=== PATIENT | female | born 1980 | race Asian ===

== ENCOUNTER 2016-06-21 21:51 | Emergency (ER) | payer OTHER, MEDICAID ==
[~2016-06-21] VITALS: Ht 162.6 cm; Wt 63.5 kg
[2016-06-21 22:00] VITALS: BP_SYST 126
--- NOTE | 2016-06-21 22:00 | NUR ---
Patient triaged and placed in waiting room. VSS and patient appears in no acute distress at this time. Accompanied by self, awaiting available bed, and MD notified of need for MSE.
--- NOTE | 2016-06-21 22:15 | NUR ---
ER Dr. KLINE at bedside examining patient.
--- NOTE | 2016-06-21 22:15 | NUR ---
PT STATES SHE HAS UPPER ABDOMINAL PAIN 09/09 SINCE FRIDAY, NO N/V/D. NO COLE. SAFETY PRECAUTIONS IN PLACE, WILL CONTINUE TO MONITOR.
[2016-06-21 22:43] LABS: BASOPHILS % (AUTO) 0.3 % (0.0-2.0); EOSINOPHILS # (AUTO) 0.1 K/uL (0.0-0.4); MEAN CORPUSCULAR HEMOGLOBIN 24 pg (27-31); MONOCYTES # (AUTO) 0.4 K/uL (0.0-1.0)
[2016-06-21 22:45] LABS: EOSINOPHILS % (AUTO) 0.7 % (0.0-4.0); HEMATOCRIT 31.3 % (36-48); LYMPHOCYTES % (AUTO) 45.6 % (20.5-51.5); MEAN CORPUSCULAR HGB CONC 32 % (32-36); MEAN CORPUSCULAR VOLUME 74 fL (79.0-98.0); MONOCYTES % (AUTO) 4.5 % (1.7-9.3); NEUTROPHILS # (AUTO) 4.2 K/uL (1.8-7.7); NEUTROPHILS % (AUTO) 48.9 % (40.0-70.0); PLATELET COUNT (AUTO) 365 K/uL (130-430); RED BLOOD CELL COUNT(AUTO) 4.21 MIL/uL (4.2-6.2); RED CELL DISTRIBUTION WIDTH 16.1 % (9.0-15.0); WHITE BLOOD COUNT (AUTO) 8.7 K/uL (4.8-10.8)
[2016-06-21 22:46] LABS: BILIRUBIN,URINE NEGATIVE (NEGATIVE); CLARITY/URINE CLEAR (CLEAR); GLUCOSE,URINE NEGATIVE (NEGATIVE); KETONES,URINE NEGATIVE (NEGATIVE); LEUKOCYTE ESTERASE ,URINE NEGATIVE (NEGATIVE); NITRITE, URINE NEGATIVE (NEGATIVE); PH,URINE 7.5 (5.0-8.0); PROTEIN URINE NEGATIVE (NEGATIVE); UROBILINOGEN,URINE 0.2 (0.2-1.0)
[2016-06-21 22:46] LABS: CALCIUM 8.4 mg/dL (8.4-11.0); CREATININE 0.94 mg/dL (0.55-1.30); POTASSIUM 3.9 mmol/L (3.5-5.1)
[2016-06-21 22:51] LABS: TOTAL BILIRUBIN 0.2 mg/dL (0.0-1.0)
[2016-06-21 22:57] LABS: BLOOD, URINE TRACE (NEGATIVE); COLOR,URINE STRAW (YELLOW)
[2016-06-21 22:58] LABS: BACTERIA,URINE FEW /HPF (None Seen); RBC,URINE NONE SEEN /HPF (0-3); WBC,URINE NONE SEEN /HPF (0-3)
[2016-06-21 22:59] LABS: MUCUS,URINE None Seen /LPF (None Seen)
[2016-06-21] MEDS ORDERED: MAG-AL HYDROX/SIMETH 30 ML UDC PO ONE (23:30)
[2016-06-21] MEDS ORDERED: LIDOCAINE VISCOUS 2%, 15 ML UDC MM ONE (23:30)
[2016-06-21] MEDS ORDERED: BELLADONNA ALKALOIDS/PHENOBARB 5 ML UDC PO ONE (23:30)
[2016-06-22] MEDS ORDERED: LIDOCAINE VISCOUS 2%, 15 ML UDC ONE (00:22)
[2016-06-22 01:15] VITALS: BP_SYST 126
--- NOTE | 2016-06-22 01:15 | NUR ---
Patient given written and verbal discharge instructions and verbalizes understanding. ER MD DR. KLINE discussed with patient the results and treatment provided. Given copies of tests performed in ER. Patient in stable condition. ID arm band removed. Rx of PRILOSEC given. Patient educated on pain management and to follow up with PMD. Pain Scale 1/10, PT AMBULATED W/ STEADY GAIT. Opportunity for questions provided and answered.
== END 2016-06-22 01:15 | disposition home or self-care (01) ==
LOC: SED 21:51
DX: K21.9 Gastro-esophageal reflux disease without esophagitis (principal)
CPT/HCPCS: 36415; 80053; 81000; 81025; 83690; 85025; 99284; J2001

== ENCOUNTER 2018-05-20 12:00 | Emergency (ER) | payer OTHER, MEDICAID ==
[~2018-05-20] VITALS: Ht 162.6 cm; Wt 68.0 kg
[2018-05-20 12:00] VITALS: BP_SYST 131
--- NOTE | 2018-05-20 12:00 | NUR ---
BROUGHT BACK TO BED #4 AND TRIAGED. REPORT GIVEN TO JOSELIN
--- NOTE | 2018-05-20 12:22 | NUR ---
patient arrived AOx4 from home with c/o right eyelip swelling since this morning. patient states she has never had this before. patient states she tried to ice her eye but hasn't looked at it since or touched it since. patient states she googled her eye problem has states she has cellulitius. patient denies any vision changes and denies discharge of any kind. no other complaint or injury at this time.
--- NOTE | 2018-05-20 12:23 | NUR ---
Patient to ER bed 04 for evaluation. Side rails up.
--- NOTE | 2018-05-20 12:23 | NUR ---
ER at bedside examining patient.
[2018-05-20 13:11] VITALS: BP_SYST 130
--- NOTE | 2018-05-20 13:11 | NUR ---
Patient given written and verbal discharge instructions and verbalizes understanding. ER MD discussed with patient the results and treatment provided. Patient in stable condition. ID arm band removed. IV catheter removed intact and dressing applied, no active bleeding. Rx of Keflex given. Doctor Roney informed patient to take Benadryl allergy OTC. Patient educated on pain management and to follow up with PMD. Pain Scale 0/10. Opportunity for questions provided and answered. Medication side effect fact sheet provided.
== END 2018-05-20 13:11 | disposition home or self-care (01) ==
LOC: SED 12:00
DX: T78.40XA Allergy, unspecified, initial encounter (principal); H02.841 Edema of right upper eyelid; F32.9 Major depressive disorder, single episode, unspecified; R03.0 Elevated blood-pressure reading, without diagnosis of hypertension; X58.XXXA Exposure to other specified factors, initial encounter
CPT/HCPCS: 81025; 99283

== ENCOUNTER 2018-09-12 23:49 | Emergency (ER) | payer OTHER, MEDICAID ==
[~2018-09-12] VITALS: Ht 162.6 cm; Wt 61.2 kg
[2018-09-13 00:08] VITALS: BP_SYST 105
--- NOTE | 2018-09-13 00:12 | NUR ---
Patient to ER bed 6 to gown for evaluation. Side rails up.
--- NOTE | 2018-09-13 00:30 | NUR ---
Patient came from home aaox4 with complaints or burning upon urination, no bleeding. States she went to [employer] and thats when the incident happen. Denies any pain, n/v, chills, or fever.
[2018-09-13 01:13] LABS: BILIRUBIN,URINE NEGATIVE (NEGATIVE); BLOOD, URINE 1+ (NEGATIVE); CLARITY/URINE CLEAR (CLEAR); COLOR,URINE YELLOW (YELLOW); GLUCOSE,URINE NEGATIVE (NEGATIVE); KETONES,URINE NEGATIVE (NEGATIVE); LEUKOCYTE ESTERASE ,URINE 1+ (NEGATIVE); NITRITE, URINE POSITIVE (NEGATIVE); PH,URINE 7.5 (5.0-8.0); PROTEIN URINE 2+ (NEGATIVE); UROBILINOGEN,URINE 0.2 (0.2-1.0)
[2018-09-13 01:23] LABS: BACTERIA,URINE MODERATE /HPF (None Seen)
--- NOTE | 2018-09-13 01:48 | NUR ---
ER Dr. Hector at bedside examining patient.
[2018-09-13] MEDS ORDERED: PHENAZOPYRIDINE HCL 100 MG TABLET PO ONE (02:00)
[2018-09-13] MEDS ORDERED: NITROFURANTOIN MONOHYD/M-CRYST 100 MG CAPSULE PO ONE (02:00)
[2018-09-13 02:14] VITALS: BP_SYST 110
--- NOTE | 2018-09-13 02:14 | NUR ---
Patient given written and verbal discharge instructions and verbalizes understanding. ER MD discussed with patient the results and treatment provided. Patient in stable condition. ID arm band removed. Rx of Nitrofurantoin and Pyridium given. Patient educated on pain management and to follow up with PMD. Pain Scale 0/10. Opportunity for questions provided and answered. Medication side effect fact sheet provided.
[2018-09-15] MEDS ORDERED: QUET50TA PO (05:27)
[2018-09-15] MEDS ORDERED: DIVA250T PO (05:27)
[2018-09-15] MEDS ORDERED: DIVA500T4 PO (05:27)
[2018-09-15] MEDS ORDERED: FENO145T PO (05:27)
[2018-09-15] MEDS ORDERED: WELSR150 PO (05:27)
[2018-09-15] MEDS ORDERED: LIP10 PO (05:27)
[2018-09-16] MEDS ORDERED: DIF100 PO (10:13)
[2018-09-16] MEDS ORDERED: CEPH-568 PO (10:13)
== END 2018-09-13 02:14 | disposition home or self-care (01) ==
LOC: SED 23:49
DX: N39.0 Urinary tract infection, site not specified (principal)
CPT/HCPCS: 81000-TC; 87086; 99283

== ENCOUNTER 2018-11-27 23:33 | Emergency (ER) | payer OTHER, MEDICAID ==
[~2018-11-27] VITALS: Ht 162.6 cm; Wt 59.0 kg
[~2018-11-27 23:33] MED LIST: CEPH-568 PO; DIF100 PO; DIVA250T PO; DIVA500T4 PO; FENO145T PO; LIP10 PO; QUET50TA PO; WELSR150 PO
[2018-11-27 23:55] VITALS: BP_SYST 117
--- NOTE | 2018-11-28 00:32 | NUR ---
Pt ambulatory to bed 1 for evaluation
--- NOTE | 2018-11-28 00:50 | NUR ---
Dr. Yates bedside for Pt eval
[2018-11-28] MEDS ORDERED: AZITHROMYCIN 250 MG TABLET PO ONE (01:00)
[2018-11-28] MEDS ORDERED: cefTRIAXone 250 MG VIAL IM ONE (01:00)
--- NOTE | 2018-11-28 01:00 | NUR ---
Pt BIB family to ED C/O 3 days of urinary frequency and urgency along with dysuria. Has had history of frequent UTIs for the past one year. Endorse nausea and vague bilateral flank pain. Denied vomiting, fever, abdominal pain, vaginal discharge and vaginal bleeding. No other injuries and or complaints noted. VSS no s/s of acute distress. Resting on gurney rails up
[2018-11-28 01:15] LABS: BILIRUBIN,URINE NEGATIVE (NEGATIVE); BLOOD, URINE 3+ (NEGATIVE); CLARITY/URINE CLEAR (CLEAR); COLOR,URINE ORANGE (YELLOW); GLUCOSE,URINE TRACE (NEGATIVE); KETONES,URINE NEGATIVE (NEGATIVE); LEUKOCYTE ESTERASE ,URINE 2+ (NEGATIVE); NITRITE, URINE POSITIVE (NEGATIVE); PH,URINE 6.5 (5.0-8.0); PROTEIN URINE 3+ (NEGATIVE)
[2018-11-28 01:20] VITALS: BP_SYST 117
--- NOTE | 2018-11-28 01:20 | NUR ---
Patient given written and verbal discharge instructions and verbalizes understanding. ER MD discussed with patient the results and treatment provided. Patient in stable condition. ID arm band removed. Rx of Macrobid and Pyridium given. Patient educated on pain management and to follow up with PMD. Pain Scale 0/10 Opportunity for questions provided and answered. Medication side effect fact sheet provided.
[2018-11-28 01:22] LABS: BACTERIA,URINE MANY /HPF (None Seen); RBC,URINE 80-100 /HPF (0-3)
[2018-12-01 08:06] LABS: CHLAMYDIA TRACHOMATIS NAA Negative (Negative); NEISSERIA GONORRHOEAE NAA Negative (Negative)
== END 2018-11-28 01:20 | disposition home or self-care (01) ==
LOC: SED 23:33
DX: N30.90 Cystitis, unspecified without hematuria (principal)
CPT/HCPCS: 81000; 81025; 87086; 87491; 87591; 96372; 99283; J0696; Q0144

== ENCOUNTER 2020-07-14 22:17 | Emergency (ER) | payer OTHER, MEDICAID ==
[~2020-07-14] VITALS: Ht 162.6 cm; Wt 60.8 kg
[2020-07-14 22:26] VITALS: BP_SYST 148
[2020-07-14] MEDS ORDERED: AZITHROMYCIN 250 MG TABLET PO ONE (23:45)
[2020-07-14] MEDS ORDERED: TOBRAMYCIN/DEXAMETHASONE Non-Formulary EYE DROPS.SUSP 2.5 ML OP ONE (23:45)
[2020-07-15] MEDS ORDERED: GENTAMICIN SULFATE 0.3% Non-Formulary OPHT. 5 ML DROPS OP ONE ×2 (00:03→00:15)
[2020-07-15] MEDS ORDERED: ERYTHROMYCIN BASE 0.5% EYE OINT...G. ONE (00:03)
[2020-07-15] MEDS ORDERED: TOBRADEXD OP (00:09)
[2020-07-15] MEDS ORDERED: ZIT250 PO (00:10)
[2020-07-15 00:12] VITALS: BP_SYST 132
== END 2020-07-15 00:12 | disposition home or self-care (01) ==
LOC: SED 22:17
DX: H00.016 Hordeolum externum left eye, unspecified eyelid (principal); Z79.899 Other long term (current) drug therapy
CPT/HCPCS: 99283; Q0144